=== PATIENT | male | born 1980 | race Caucasian/White ===

== ENCOUNTER 2018-02-14 09:23 | Inpatient (IN) | payer OTHER ==
[2018-02-14] MEDS ORDERED: ACETAMINOPHEN 325 MG TAB PO (10:00)
[2018-02-14] MEDS ORDERED: NACL 0.9% 3 ML SYG IV (10:00)
[2018-02-14] MEDS: LORAZEPAM 2 MG INJ IV ×5 (10:13→21:49)
[2018-02-14] MEDS: SOD CHLORIDE 0.9% 1,000 ML IV ×2 (10:14→21:16)
[2018-02-14 11:30] LABS: HEMOGLOBIN A1C 4.9 % (0-5.9)
[2018-02-14 11:36] LABS: LIPASE 14 U/L (23-300)
[2018-02-14 11:37] LABS: ETHANOL < 10.0 mg/dl
[2018-02-14 11:54] LABS: INR 1.06; PROTIME 13.9 Sec (11.9-14.9); PT RATIO 1.1
[2018-02-14] MEDS: MULTIVITAMINS 10 ML, THIAMINE 100 MG, FOLIC ACID 1 MG in SOD CHLORIDE 0.9% 1,000 ML IVPB (12:24)
[2018-02-14] MEDS: CHLORDIAZEPOXIDE 25 MG CAP PO ×2 (12:25→21:15)
[2018-02-14] MEDS: FLUOXETINE 20 MG CAP PO (12:28)
[2018-02-14 14:43] LABS: ADD UMIC NO; UR ASCORBIC ACID NEGATIVE (NEGATIVE); UR BILIRUBIN (Dip) NEGATIVE (NEGATIVE); UR BLOOD (Dip) NEGATIVE (NEGATIVE); UR CLARITY CLEAR (CLEAR); UR COLOR STRAW (YELLOW); UR GLUCOSE (Dip) 1+ mg/dL (NEGATIVE); UR KETONES (Dip) NEGATIVE (NEGATIVE); UR LEUKOCYTE ESTERASE (Dip) NEGATIVE Leu/ul (NEGATIVE); UR NITRITE (Dip) NEGATIVE (NEGATIVE); UR SPECIFIC GRAVITY (Dip) 1.005 (1.003-1.030); UR TOTAL PROTEIN (Dip) NEGATIVE (NEGATIVE); UR UROBILINOGEN (Dip) NEGATIVE (NEGATIVE)
[2018-02-14 15:32] LABS: AMPHETAMINE/METHAMPHETAMINE Negative (NEGATIVE); BARBITURATES Negative (NEGATIVE); BENZODIAZEPINES Positive (NEGATIVE); CANNABINOIDS Negative (NEGATIVE); OPIATES Negative (NEGATIVE)
[2018-02-14 15:59] LABS: COCAINE Negative (NEGATIVE)
[2018-02-14] MEDS ORDERED: ONDANSETRON 4 MG INJ IV (16:30)
[2018-02-14] MEDS: THIAMINE 100 MG TAB PO (19:17)
[2018-02-14 20:15] LABS: WHITE BLOOD COUNT 5.1 10^3/ul (4.8-10.8)
[2018-02-14 20:15] LABS: HEMATOCRIT 31.5 % (42.0-52.0); HEMOGLOBIN 10.4 g/dl (14.0-18.0); MEAN CORPUSCULAR HEMOGLOBIN 32.8 pg (29.0-33.0); MEAN CORPUSCULAR VOLUME 99.4 fl (82.0-101.0); MEAN PLATELET VOLUME 8.7 fl (7.4-10.4); PLATELET COUNT 272 10^3/UL (140-415); RED BLOOD COUNT 3.17 10^6/ul (4.70-6.10); RED CELL DISTRIBUTION WIDTH 13.2 % (11.5-14.5)
[2018-02-14 20:16] LABS: ADD MAN DIFF? YES
[2018-02-14 20:40] LABS: ALANINE AMINOTRANSFERASE 32 IU/L (13-69); ALBUMIN 3.7 g/dl (3.3-4.9); ALBUMIN/GLOBULIN RATIO 1.23; ALKALINE PHOSPHATASE 63 IU/L (42-121); ANION GAP 13 (8-16); ASPARTATE AMINO TRANSFERASE 30 IU/L (15-46); BILIRUBIN,INDIRECT 0.4 mg/dl (0-1.1); BILIRUBIN,TOTAL 0.4 mg/dl (0.2-1.3); BLOOD UREA NITROGEN 5 mg/dl (7-20); CALCIUM 8.8 mg/dl (8.4-10.2); CARBON DIOXIDE 29 mmol/L (21-31); CHLORIDE 101 mmol/L (97-110); GLUCOSE 130 mg/dl (70-220); POTASSIUM 3.5 mmol/L (3.5-5.1); SODIUM 139 mmol/L (135-144); TOTAL PROTEIN 6.7 g/dl (6.1-8.1)
[2018-02-14 20:43] LABS: ANISOCYTOSIS 1+ (0-0); LYMPHOCYTES #M 1.5 10^3/ul (0.8-2.9); LYMPHOCYTES % (M) 30 % (15-51); MONOCYTE #M 0.5 10^3/ul (0.3-0.9); MONOCYTES % (M) 11 % (0-11); PLATELET ESTIMATE NORMAL; POLYCHROMASIA 3+ (0-0); SEGMENTED NEUTROPHILS (M) % 59 % (39-77); SMUDGE%M 1 % (0-0)
[2018-02-14] MEDS: QUETIAPINE 100 MG TAB PO (21:14)
[2018-02-14] MEDS: traZODone 100 MG TAB PO (21:15)
[2018-02-15 08:32] LABS: ALANINE AMINOTRANSFERASE 30 IU/L (13-69); ALBUMIN 3.5 g/dl (3.3-4.9); ALKALINE PHOSPHATASE 60 IU/L (42-121); ANION GAP 14 (8-16); ASPARTATE AMINO TRANSFERASE 24 IU/L (15-46); BILIRUBIN,INDIRECT 0.3 mg/dl (0-1.1); BILIRUBIN,TOTAL 0.3 mg/dl (0.2-1.3); BLOOD UREA NITROGEN 7 mg/dl (7-20); CALCIUM 8.7 mg/dl (8.4-10.2); CARBON DIOXIDE 28 mmol/L (21-31); CHLORIDE 105 mmol/L (97-110); CREATININE 0.84 mg/dl (0.61-1.24); GLUCOSE 104 mg/dl (70-220); MAGNESIUM 2.1 mg/dl (1.7-2.5); POTASSIUM 3.6 mmol/L (3.5-5.1); SODIUM 143 mmol/L (135-144); TOTAL PROTEIN 6.4 g/dl (6.1-8.1)
[2018-02-15] MEDS: MULTIVITAMINS THERAPEUTIC TAB PO (08:57)
[2018-02-15] MEDS: CHLORDIAZEPOXIDE 25 MG CAP PO ×4 (08:58→20:48)
[2018-02-15] MEDS: FLUOXETINE 20 MG CAP PO (08:58)
[2018-02-15] MEDS: MULTIVITAMINS 10 ML, THIAMINE 100 MG, FOLIC ACID 1 MG in SOD CHLORIDE 0.9% 1,000 ML IVPB (08:59)
[2018-02-15] MEDS: LORAZEPAM 2 MG INJ IV ×6 (10:39→23:11)
[2018-02-15] MEDS: THIAMINE 100 MG TAB PO (10:42)
[2018-02-15] MEDS: SOD CHLORIDE 0.9% 1,000 ML IV ×2 (10:57→18:00)
[2018-02-15 12:54] LABS: LIPASE 13 U/L (23-300)
[2018-02-15 13:12] LABS: AMYLASE 38 U/L (11-123)
[2018-02-15] MEDS: traZODone 100 MG TAB PO (20:47)
[2018-02-15] MEDS: QUETIAPINE 100 MG TAB PO (20:48)
[2018-02-16] MEDS: SOD CHLORIDE 0.9% 1,000 ML IV ×2 (05:24→17:25)
[2018-02-16 05:36] LABS: ADD MAN DIFF? NO
[2018-02-16 05:39] LABS: WHITE BLOOD COUNT 5.3 10^3/ul (4.8-10.8)
[2018-02-16 05:40] LABS: BASOPHILS % 0.6 % (0.0-2.0); EOSINOPHILS # 0.2 10^3/ul (0.0-0.5); EOSINOPHILS % 3.6 % (0.0-7.0); HEMATOCRIT 30.5 % (42.0-52.0); HEMOGLOBIN 9.9 g/dl (14.0-18.0); LYMPHOCYTES # 2.2 10^3/ul (0.8-2.9); LYMPHOCYTES % 42.5 % (15.0-51.0); MEAN CORPUSCULAR HEMOGLOBIN 32.7 pg (29.0-33.0); MEAN CORPUSCULAR HGB CONC 32.5 g/dl (32.0-37.0); MEAN CORPUSCULAR VOLUME 100.7 fl (82.0-101.0); MEAN PLATELET VOLUME 9.1 fl (7.4-10.4); MONOCYTE # 0.6 10^3/ul (0.3-0.9); MONOCYTES % 10.5 % (0.0-11.0); NEUTROPHIL # 2.2 10^3/ul (1.6-7.5); NEUTROPHILS % 42.6 % (39.0-77.0); PLATELET COUNT 271 10^3/UL (140-415); RED BLOOD COUNT 3.03 10^6/ul (4.70-6.10); RED CELL DISTRIBUTION WIDTH 13.2 % (11.5-14.5)
[2018-02-16 05:56] LABS: CHOLESTEROL 157 mg/dl (100-200); PHOSPHORUS 4.9 mg/dl (2.5-4.9)
[2018-02-16 05:56] LABS: CHOL/HDL RATIO 2.9 RATIO; HDL CHOLESTEROL 54 mg/dl (28-63); LDL CHOLESTEROL,CALCULATED 80 mg/dl; TRIGLYCERIDES 113 mg/dl (0-149)
[2018-02-16 06:01] LABS: ALANINE AMINOTRANSFERASE 32 IU/L (13-69); ALBUMIN 3.4 g/dl (3.3-4.9); ALBUMIN/GLOBULIN RATIO 1.21; ALKALINE PHOSPHATASE 55 IU/L (42-121); ANION GAP 12 (8-16); ASPARTATE AMINO TRANSFERASE 18 IU/L (15-46); BILIRUBIN,INDIRECT 0.1 mg/dl (0-1.1); BILIRUBIN,TOTAL 0.1 mg/dl (0.2-1.3); BLOOD UREA NITROGEN 11 mg/dl (7-20); CALCIUM 8.7 mg/dl (8.4-10.2); CARBON DIOXIDE 31 mmol/L (21-31); CHLORIDE 104 mmol/L (97-110); CREATININE 0.95 mg/dl (0.61-1.24); GLUCOSE 110 mg/dl (70-220); POTASSIUM 3.9 mmol/L (3.5-5.1); SODIUM 143 mmol/L (135-144); TOTAL PROTEIN 6.2 g/dl (6.1-8.1)
[2018-02-16] MEDS: FLUOXETINE 20 MG CAP PO (09:11)
[2018-02-16] MEDS: CHLORDIAZEPOXIDE 25 MG CAP PO ×3 (09:11→21:07)
[2018-02-16] MEDS: THIAMINE 100 MG TAB PO (09:11)
[2018-02-16] MEDS: MULTIVITAMINS THERAPEUTIC TAB PO (09:11)
[2018-02-16] MEDS: LORAZEPAM 2 MG INJ IV ×6 (09:18→22:13)
[2018-02-16] MEDS: MULTIVITAMINS 10 ML, THIAMINE 100 MG, FOLIC ACID 1 MG in SOD CHLORIDE 0.9% 1,000 ML IVPB (09:18)
[2018-02-16 13:57] LABS: IRON 40 ug/dl (35-150)
[2018-02-16 14:07] LABS: % IRON SATURATION 13 % SAT (22-52); TOTAL IRON BINDING CAPACITY 317 ug/dl (241-421)
[2018-02-16 14:34] LABS: FERRITIN 27.9 ng/ml (17.9-464.0)
[2018-02-16 15:04] LABS: FOLATE 9.2 ng/ml (2.8-20.0)
[2018-02-16] MEDS: QUETIAPINE 100 MG TAB PO (21:07)
[2018-02-16] MEDS: traZODone 100 MG TAB PO (21:07)
[2018-02-17] MEDS: LORAZEPAM 2 MG INJ IV ×9 (00:56→23:14)
[2018-02-17] MEDS: SOD CHLORIDE 0.9% 1,000 ML IV ×2 (05:29→18:57)
[2018-02-17 06:26] LABS: ALANINE AMINOTRANSFERASE 24 IU/L (13-69); ALBUMIN 3.7 g/dl (3.3-4.9); ALBUMIN/GLOBULIN RATIO 1.27; ALKALINE PHOSPHATASE 52 IU/L (42-121); ANION GAP 14 (8-16); ASPARTATE AMINO TRANSFERASE 13 IU/L (15-46); BLOOD UREA NITROGEN 12 mg/dl (7-20); CALCIUM 8.6 mg/dl (8.4-10.2); CARBON DIOXIDE 29 mmol/L (21-31); CHLORIDE 103 mmol/L (97-110); GLUCOSE 107 mg/dl (70-220); POTASSIUM 3.6 mmol/L (3.5-5.1); SODIUM 142 mmol/L (135-144); TOTAL PROTEIN 6.6 g/dl (6.1-8.1)
[2018-02-17] MEDS: FLUOXETINE 20 MG CAP PO (08:51)
[2018-02-17] MEDS: THIAMINE 100 MG TAB PO (08:51)
[2018-02-17] MEDS: MULTIVITAMINS THERAPEUTIC TAB PO (08:51)
[2018-02-17] MEDS: CHLORDIAZEPOXIDE 25 MG CAP PO (08:51)
[2018-02-17] MEDS: MULTIVITAMINS 10 ML, THIAMINE 100 MG, FOLIC ACID 1 MG in SOD CHLORIDE 0.9% 1,000 ML IVPB (08:55)
[2018-02-17 10:34] LABS: ADD MAN DIFF? NO
[2018-02-17 10:38] LABS: BASOPHILS % 0.6 % (0.0-2.0); EOSINOPHILS # 0.2 10^3/ul (0.0-0.5); EOSINOPHILS % 3.3 % (0.0-7.0); HEMATOCRIT 31.6 % (42.0-52.0); HEMOGLOBIN 10.5 g/dl (14.0-18.0); LYMPHOCYTES # 2.4 10^3/ul (0.8-2.9); LYMPHOCYTES % 36.1 % (15.0-51.0); MEAN CORPUSCULAR HEMOGLOBIN 33.4 pg (29.0-33.0); MEAN CORPUSCULAR HGB CONC 33.2 g/dl (32.0-37.0); MEAN CORPUSCULAR VOLUME 100.6 fl (82.0-101.0); MEAN PLATELET VOLUME 9.3 fl (7.4-10.4); MONOCYTE # 0.5 10^3/ul (0.3-0.9); MONOCYTES % 7.5 % (0.0-11.0); NEUTROPHIL # 3.5 10^3/ul (1.6-7.5); NEUTROPHILS % 52.2 % (39.0-77.0); PLATELET COUNT 305 10^3/UL (140-415); RED BLOOD COUNT 3.14 10^6/ul (4.70-6.10); RED CELL DISTRIBUTION WIDTH 13.2 % (11.5-14.5)
[2018-02-17 10:38] LABS: WHITE BLOOD COUNT 6.7 10^3/ul (4.8-10.8)
[2018-02-17] MEDS: QUETIAPINE 100 MG TAB PO (20:55)
[2018-02-17] MEDS: traZODone 100 MG TAB PO (20:55)
[2018-02-18 05:15] LABS: ADD MAN DIFF? NO
[2018-02-18 05:20] LABS: BASOPHILS % 0.6 % (0.0-2.0); EOSINOPHILS # 0.2 10^3/ul (0.0-0.5); EOSINOPHILS % 3.2 % (0.0-7.0); HEMATOCRIT 31.8 % (42.0-52.0); HEMOGLOBIN 10.8 g/dl (14.0-18.0); LYMPHOCYTES # 2.3 10^3/ul (0.8-2.9); LYMPHOCYTES % 33.4 % (15.0-51.0); MEAN CORPUSCULAR HEMOGLOBIN 33.3 pg (29.0-33.0); MEAN CORPUSCULAR VOLUME 98.1 fl (82.0-101.0); MEAN PLATELET VOLUME 8.9 fl (7.4-10.4); MONOCYTE # 0.4 10^3/ul (0.3-0.9); MONOCYTES % 5.5 % (0.0-11.0); NEUTROPHIL # 3.9 10^3/ul (1.6-7.5); PLATELET COUNT 313 10^3/UL (140-415); RED BLOOD COUNT 3.24 10^6/ul (4.70-6.10); RED CELL DISTRIBUTION WIDTH 13.1 % (11.5-14.5)
[2018-02-18 05:20] LABS: WHITE BLOOD COUNT 6.9 10^3/ul (4.8-10.8)
[2018-02-18 05:50] LABS: ALANINE AMINOTRANSFERASE 22 IU/L (13-69); ALBUMIN 3.8 g/dl (3.3-4.9); ALBUMIN/GLOBULIN RATIO 1.18; ALKALINE PHOSPHATASE 57 IU/L (42-121); ANION GAP 14 (8-16); ASPARTATE AMINO TRANSFERASE 16 IU/L (15-46); BILIRUBIN,INDIRECT 0.1 mg/dl (0-1.1); BILIRUBIN,TOTAL 0.1 mg/dl (0.2-1.3); BLOOD UREA NITROGEN 13 mg/dl (7-20); CALCIUM 8.7 mg/dl (8.4-10.2); CARBON DIOXIDE 30 mmol/L (21-31); CHLORIDE 102 mmol/L (97-110); CREATININE 0.91 mg/dl (0.61-1.24); GLUCOSE 103 mg/dl (70-220); MAGNESIUM 2.2 mg/dl (1.7-2.5); POTASSIUM 3.7 mmol/L (3.5-5.1); SODIUM 142 mmol/L (135-144)
[2018-02-18] MEDS: FLUOXETINE 20 MG CAP PO (09:09)
[2018-02-18] MEDS: MULTIVITAMINS 10 ML, THIAMINE 100 MG, FOLIC ACID 1 MG in SOD CHLORIDE 0.9% 1,000 ML IVPB (09:09)
[2018-02-18] MEDS: MULTIVITAMINS THERAPEUTIC TAB PO (09:09)
[2018-02-18] MEDS: LORAZEPAM 2 MG INJ IV ×6 (09:13→23:39)
[2018-02-18] MEDS: SOD CHLORIDE 0.9% 1,000 ML IV ×2 (13:35→18:38)
[2018-02-18] MEDS: QUETIAPINE 100 MG TAB PO (20:23)
[2018-02-18] MEDS: traZODone 100 MG TAB PO (20:23)
[2018-02-19] MEDS: SOD CHLORIDE 0.9% 1,000 ML IV (03:12)
[2018-02-19 06:23] LABS: ALANINE AMINOTRANSFERASE 24 IU/L (13-69); ALBUMIN 3.8 g/dl (3.3-4.9); ALBUMIN/GLOBULIN RATIO 1.31; ALKALINE PHOSPHATASE 52 IU/L (42-121); ANION GAP 15 (8-16); ASPARTATE AMINO TRANSFERASE 19 IU/L (15-46); BILIRUBIN,INDIRECT 0.1 mg/dl (0-1.1); BILIRUBIN,TOTAL 0.1 mg/dl (0.2-1.3); BLOOD UREA NITROGEN 10 mg/dl (7-20); CALCIUM 8.4 mg/dl (8.4-10.2); CARBON DIOXIDE 29 mmol/L (21-31); CHLORIDE 102 mmol/L (97-110); CREATININE 0.87 mg/dl (0.61-1.24); GLUCOSE 92 mg/dl (70-220); MAGNESIUM 2.1 mg/dl (1.7-2.5); POTASSIUM 3.6 mmol/L (3.5-5.1); SODIUM 142 mmol/L (135-144); TOTAL PROTEIN 6.7 g/dl (6.1-8.1)
[2018-02-19] MEDS: MULTIVITAMINS THERAPEUTIC TAB PO (09:47)
[2018-02-19] MEDS: FLUOXETINE 20 MG CAP PO (09:48)
[2018-02-19] MEDS: MULTIVITAMINS 10 ML, THIAMINE 100 MG, FOLIC ACID 1 MG in SOD CHLORIDE 0.9% 1,000 ML IVPB (09:48)
[2018-02-19] MEDS: LORAZEPAM 2 MG INJ IV ×5 (09:51→22:24)
[2018-02-19] MEDS: CHLORDIAZEPOXIDE 5 MG CAP PO ×2 (12:21→21:42)
[2018-02-19] MEDS: traZODone 100 MG TAB PO (21:40)
[2018-02-19] MEDS: QUETIAPINE 100 MG TAB PO (21:41)
[2018-02-20] MEDS: MULTIVITAMINS THERAPEUTIC TAB PO (09:36)
[2018-02-20] MEDS: MULTIVITAMINS 10 ML, THIAMINE 100 MG, FOLIC ACID 1 MG in SOD CHLORIDE 0.9% 1,000 ML IVPB (09:36)
[2018-02-20] MEDS: FLUOXETINE 20 MG CAP PO (09:36)
[2018-02-20] MEDS: CHLORDIAZEPOXIDE 5 MG CAP PO ×3 (09:37→20:30)
[2018-02-20] MEDS: LORAZEPAM 2 MG INJ IV ×6 (10:15→22:08)
[2018-02-20] MEDS: traZODone 100 MG TAB PO (20:30)
[2018-02-20] MEDS: QUETIAPINE 100 MG TAB PO (20:30)
[2018-02-21] MEDS: SOD CHLORIDE 0.9% 500 ML IV (08:05)
[2018-02-21] MEDS: LORAZEPAM 2 MG INJ IV ×6 (08:05→22:24)
[2018-02-21] MEDS: FOLIC ACID 1 MG TAB PO (09:05)
[2018-02-21] MEDS: FLUOXETINE 20 MG CAP PO (09:05)
[2018-02-21] MEDS: MULTIVITAMINS THERAPEUTIC TAB PO (09:05)
[2018-02-21] MEDS: THIAMINE 100 MG TAB PO (09:05)
[2018-02-21] MEDS: CHLORDIAZEPOXIDE 5 MG CAP PO ×3 (09:05→21:40)
[2018-02-21] MEDS: POLYETHYLENE GLYCOL 17 GM PACKET NGT ×2 (12:08→21:41)
[2018-02-21] MEDS: BISACODYL (EC) 5 MG TAB PO (12:08)
[2018-02-21] MEDS: DOCUSATE SODIUM 100 MG CAP PO (21:38)
[2018-02-21] MEDS: QUETIAPINE 100 MG TAB PO (21:39)
[2018-02-21] MEDS: traZODone 100 MG TAB PO (21:39)
[2018-02-22] MEDS: LORAZEPAM 2 MG INJ IV ×2 (00:53→08:13)
[2018-02-22] MEDS: SOD CHLORIDE 0.9% 1,000 ML IV (03:08)
[2018-02-22 06:46] LABS: ADD MAN DIFF? NO
[2018-02-22 06:49] LABS: WHITE BLOOD COUNT 6.5 10^3/ul (4.8-10.8)
[2018-02-22 06:49] LABS: BASOPHILS % 0.6 % (0.0-2.0); EOSINOPHILS # 0.2 10^3/ul (0.0-0.5); EOSINOPHILS % 3.2 % (0.0-7.0); HEMATOCRIT 34.3 % (42.0-52.0); HEMOGLOBIN 11.3 g/dl (14.0-18.0); LYMPHOCYTES # 2.4 10^3/ul (0.8-2.9); LYMPHOCYTES % 37.1 % (15.0-51.0); MEAN CORPUSCULAR HEMOGLOBIN 32.9 pg (29.0-33.0); MEAN CORPUSCULAR HGB CONC 32.9 g/dl (32.0-37.0); MEAN PLATELET VOLUME 9.1 fl (7.4-10.4); MONOCYTE # 0.5 10^3/ul (0.3-0.9); MONOCYTES % 7.9 % (0.0-11.0); NEUTROPHIL # 3.3 10^3/ul (1.6-7.5); NEUTROPHILS % 50.7 % (39.0-77.0); PLATELET COUNT 345 10^3/UL (140-415); RED BLOOD COUNT 3.43 10^6/ul (4.70-6.10)
[2018-02-22 07:41] LABS: ALANINE AMINOTRANSFERASE 22 IU/L (13-69); ALBUMIN/GLOBULIN RATIO 1.33; ALKALINE PHOSPHATASE 49 IU/L (42-121); ANION GAP 15 (8-16); ASPARTATE AMINO TRANSFERASE 14 IU/L (15-46); BLOOD UREA NITROGEN 12 mg/dl (7-20); CALCIUM 8.8 mg/dl (8.4-10.2); CARBON DIOXIDE 29 mmol/L (21-31); CHLORIDE 102 mmol/L (97-110); CREATININE 0.98 mg/dl (0.61-1.24); GLUCOSE 97 mg/dl (70-220); POTASSIUM 3.8 mmol/L (3.5-5.1); SODIUM 142 mmol/L (135-144)
[2018-02-22 07:45] LABS: PHOSPHORUS 5.2 mg/dl (2.5-4.9)
[2018-02-22 07:45] LABS: MAGNESIUM 2.1 mg/dl (1.7-2.5)
[2018-02-22] MEDS: FOLIC ACID 1 MG TAB PO (08:12)
[2018-02-22] MEDS: POLYETHYLENE GLYCOL 17 GM PACKET NGT ×3 (08:12→21:07)
[2018-02-22] MEDS: BISACODYL (EC) 5 MG TAB PO (08:12)
[2018-02-22] MEDS: CHLORDIAZEPOXIDE 5 MG CAP PO (08:13)
[2018-02-22] MEDS: FLUOXETINE 20 MG CAP PO (08:13)
[2018-02-22] MEDS: THIAMINE 100 MG TAB PO (08:13)
[2018-02-22] MEDS: MULTIVITAMINS THERAPEUTIC TAB PO (08:13)
[2018-02-22] MEDS: DOCUSATE SODIUM 100 MG CAP PO (08:13)
[2018-02-22] MEDS ORDERED: BISACODYL 10 MG SUPP PR (09:30)
[2018-02-22] MEDS ORDERED: LORAZEPAM 2 MG INJ IV (11:22)
[2018-02-22] MEDS: ALPRAZOLAM 0.5 MG TAB PO ×2 (12:17→18:22)
[2018-02-22] MEDS: LACTULOSE 30ML CUP PO (12:17)
[2018-02-22] MEDS ORDERED: MAGNESIUM HYDROXIDE 30ML CUP PO (16:00)
[2018-02-22] MEDS: traZODone 100 MG TAB PO (21:07)
[2018-02-22] MEDS: QUETIAPINE 100 MG TAB PO (21:08)
[2018-02-23] MEDS: ALPRAZOLAM 0.5 MG TAB PO ×4 (00:29→21:02)
[2018-02-23 07:10] LABS: ADD MAN DIFF? NO
[2018-02-23 07:12] LABS: WHITE BLOOD COUNT 5.5 10^3/ul (4.8-10.8)
[2018-02-23 07:12] LABS: BASOPHILS % 0.5 % (0.0-2.0); EOSINOPHILS # 0.2 10^3/ul (0.0-0.5); EOSINOPHILS % 3.3 % (0.0-7.0); HEMATOCRIT 35.5 % (42.0-52.0); HEMOGLOBIN 11.3 g/dl (14.0-18.0); LYMPHOCYTES # 2.2 10^3/ul (0.8-2.9); LYMPHOCYTES % 39.2 % (15.0-51.0); MEAN CORPUSCULAR HEMOGLOBIN 31.9 pg (29.0-33.0); MEAN CORPUSCULAR HGB CONC 31.8 g/dl (32.0-37.0); MEAN CORPUSCULAR VOLUME 100.3 fl (82.0-101.0); MEAN PLATELET VOLUME 9.2 fl (7.4-10.4); MONOCYTE # 0.4 10^3/ul (0.3-0.9); MONOCYTES % 7.8 % (0.0-11.0); NEUTROPHIL # 2.7 10^3/ul (1.6-7.5); NEUTROPHILS % 48.8 % (39.0-77.0); PLATELET COUNT 328 10^3/UL (140-415); RED BLOOD COUNT 3.54 10^6/ul (4.70-6.10)
[2018-02-23 07:39] LABS: ANION GAP 15 (8-16); BLOOD UREA NITROGEN 16 mg/dl (7-20); CALCIUM 9.1 mg/dl (8.4-10.2); CARBON DIOXIDE 29 mmol/L (21-31); CHLORIDE 100 mmol/L (97-110); CREATININE 1.15 mg/dl (0.61-1.24); GLUCOSE 103 mg/dl (70-220); SODIUM 140 mmol/L (135-144)
[2018-02-23] MEDS: THIAMINE 100 MG TAB PO (09:03)
[2018-02-23] MEDS: MULTIVITAMINS THERAPEUTIC TAB PO (09:03)
[2018-02-23] MEDS: FOLIC ACID 1 MG TAB PO (09:03)
[2018-02-23] MEDS: POLYETHYLENE GLYCOL 17 GM PACKET NGT ×2 (09:03→22:09)
[2018-02-23] MEDS: FLUOXETINE 20 MG CAP PO (09:03)
[2018-02-23] MEDS: QUETIAPINE 100 MG TAB PO (22:09)
[2018-02-23] MEDS: traZODone 100 MG TAB PO (22:09)
[2018-02-24] MEDS: ALPRAZOLAM 0.5 MG TAB PO ×3 (03:05→15:17)
[2018-02-24 06:47] LABS: ADD MAN DIFF? NO
[2018-02-24 06:54] LABS: BASOPHILS % 0.8 % (0.0-2.0); EOSINOPHILS # 0.2 10^3/ul (0.0-0.5); EOSINOPHILS % 3.2 % (0.0-7.0); HEMATOCRIT 35.6 % (42.0-52.0); HEMOGLOBIN 11.6 g/dl (14.0-18.0); LYMPHOCYTES # 2.2 10^3/ul (0.8-2.9); MEAN CORPUSCULAR HEMOGLOBIN 32.5 pg (29.0-33.0); MEAN CORPUSCULAR HGB CONC 32.6 g/dl (32.0-37.0); MEAN CORPUSCULAR VOLUME 99.7 fl (82.0-101.0); MEAN PLATELET VOLUME 9.3 fl (7.4-10.4); MONOCYTE # 0.4 10^3/ul (0.3-0.9); MONOCYTES % 7.9 % (0.0-11.0); NEUTROPHIL # 2.4 10^3/ul (1.6-7.5); NEUTROPHILS % 45.9 % (39.0-77.0); PLATELET COUNT 345 10^3/UL (140-415); RED BLOOD COUNT 3.57 10^6/ul (4.70-6.10); RED CELL DISTRIBUTION WIDTH 12.8 % (11.5-14.5)
[2018-02-24 06:54] LABS: WHITE BLOOD COUNT 5.3 10^3/ul (4.8-10.8)
[2018-02-24 07:15] LABS: ANION GAP 13 (8-16); BLOOD UREA NITROGEN 15 mg/dl (7-20); CALCIUM 9.2 mg/dl (8.4-10.2); CARBON DIOXIDE 33 mmol/L (21-31); CHLORIDE 99 mmol/L (97-110); CREATININE 1.13 mg/dl (0.61-1.24); GLUCOSE 119 mg/dl (70-220); POTASSIUM 4.1 mmol/L (3.5-5.1); SODIUM 141 mmol/L (135-144)
[2018-02-24] MEDS: POLYETHYLENE GLYCOL 17 GM PACKET NGT (08:27)
[2018-02-24] MEDS: FLUOXETINE 20 MG CAP PO (08:28)
[2018-02-24] MEDS: MULTIVITAMINS THERAPEUTIC TAB PO (08:28)
[2018-02-24] MEDS: THIAMINE 100 MG TAB PO (08:28)
[2018-02-24] MEDS: FOLIC ACID 1 MG TAB PO (08:28)
[2018-02-24] MEDS: LACTULOSE 30ML CUP PO (15:46)
[2018-02-24] MEDS: SOD CHLORIDE 0.9% 500 ML IV (16:00)
== END 2018-02-24 18:45 | DRG 897 ==
LOC: PP2 02-15 17:38 → MS4 09:23
PROVIDERS: Internal Medicine
DX: F10.239 Alcohol dependence with withdrawal, unspecified (principal); R45.851 Suicidal ideations; F41.9 Anxiety disorder, unspecified; F32.9 Major depressive disorder, single episode, unspecified; F17.210 Nicotine dependence, cigarettes, uncomplicated; F12.90 Cannabis use, unspecified, uncomplicated; D64.9 Anemia, unspecified; K59.00 Constipation, unspecified; F91.9 Conduct disorder, unspecified
CPT/HCPCS: 74018; 80048; 80053; 80061; 80306; 80307; 81003; 82150; 82533; 82607; 82728; 82746; 83036; 83540; 83690; 83735; 84100; 84443; 85025; 85610; 97116; 97164

== ENCOUNTER 2018-03-11 02:55 | Inpatient (IN) | payer OTHER ==
[2018-03-11] MEDS: SOD CHLORIDE 0.9% 1,000 ML IV ×3 (04:00→20:31)
[2018-03-11] MEDS: LORAZEPAM 2 MG INJ IV ×7 (04:00→20:30)
[2018-03-11 07:35] LABS: ADD MAN DIFF? NO
[2018-03-11 07:39] LABS: BASOPHILS % 0.3 % (0.0-2.0); EOSINOPHILS # 0.1 10^3/ul (0.0-0.5); EOSINOPHILS % 0.8 % (0.0-7.0); HEMATOCRIT 31.2 % (42.0-52.0); HEMOGLOBIN 10.4 g/dl (14.0-18.0); LYMPHOCYTES % 20.4 % (15.0-51.0); MEAN CORPUSCULAR HEMOGLOBIN 32.4 pg (29.0-33.0); MEAN CORPUSCULAR HGB CONC 33.3 g/dl (32.0-37.0); MEAN CORPUSCULAR VOLUME 97.2 fl (82.0-101.0); MEAN PLATELET VOLUME 8.8 fl (7.4-10.4); MONOCYTE # 0.6 10^3/ul (0.3-0.9); MONOCYTES % 6.6 % (0.0-11.0); NEUTROPHILS % 71.7 % (39.0-77.0); PLATELET COUNT 262 10^3/UL (140-415); RED BLOOD COUNT 3.21 10^6/ul (4.70-6.10); RED CELL DISTRIBUTION WIDTH 13.1 % (11.5-14.5)
[2018-03-11 07:39] LABS: WHITE BLOOD COUNT 9.7 10^3/ul (4.8-10.8)
[2018-03-11] MEDS: CHLORDIAZEPOXIDE 25 MG CAP PO ×3 (08:34→21:48)
[2018-03-11 08:46] LABS: ALANINE AMINOTRANSFERASE 23 IU/L (13-69); ALBUMIN 3.8 g/dl (3.3-4.9); ALBUMIN/GLOBULIN RATIO 1.31; ALKALINE PHOSPHATASE 60 IU/L (42-121); ANION GAP 14 (8-16); ASPARTATE AMINO TRANSFERASE 29 IU/L (15-46); BILIRUBIN,INDIRECT 0.3 mg/dl (0-1.1); BILIRUBIN,TOTAL 0.3 mg/dl (0.2-1.3); BLOOD UREA NITROGEN 6 mg/dl (7-20); CALCIUM 8.6 mg/dl (8.4-10.2); CARBON DIOXIDE 25 mmol/L (21-31); CHLORIDE 108 mmol/L (97-110); CREATININE 0.63 mg/dl (0.61-1.24); GLUCOSE 79 mg/dl (70-220); MAGNESIUM 1.7 mg/dl (1.7-2.5); PHOSPHORUS 2.3 mg/dl (2.5-4.9); POTASSIUM 3.6 mmol/L (3.5-5.1); SODIUM 143 mmol/L (135-144); TOTAL PROTEIN 6.7 g/dl (6.1-8.1)
[2018-03-11] MEDS ORDERED: ONDANSETRON 4 MG INJ IV (09:30)
[2018-03-11] MEDS ORDERED: LORAZEPAM 2 MG INJ IV (09:30)
[2018-03-11 09:38] LABS: LIPASE 18 U/L (23-300)
[2018-03-11] MEDS: MULTIVITAMINS 10 ML, THIAMINE 100 MG, FOLIC ACID 1 MG in SOD CHLORIDE 0.9% 1,000 ML IVPB (12:19)
[2018-03-11] MEDS: NEUTRA-PHOS 250 MG PACKET PO (12:27)
[2018-03-11] MEDS: FLUOXETINE 20 MG CAP PO (12:28)
[2018-03-11] MEDS: QUETIAPINE 100 MG TAB PO (21:47)
[2018-03-12] MEDS: SOD CHLORIDE 0.9% 1,000 ML IV (04:00)
[2018-03-12 06:51] LABS: ADD MAN DIFF? NO
[2018-03-12 06:57] LABS: BASOPHILS % 0.3 % (0.0-2.0); EOSINOPHILS # 0.1 10^3/ul (0.0-0.5); EOSINOPHILS % 2.3 % (0.0-7.0); HEMATOCRIT 32.9 % (42.0-52.0); LYMPHOCYTES # 1.8 10^3/ul (0.8-2.9); LYMPHOCYTES % 31.2 % (15.0-51.0); MEAN CORPUSCULAR HEMOGLOBIN 32.4 pg (29.0-33.0); MEAN CORPUSCULAR HGB CONC 33.4 g/dl (32.0-37.0); MEAN CORPUSCULAR VOLUME 97.1 fl (82.0-101.0); MONOCYTE # 0.6 10^3/ul (0.3-0.9); MONOCYTES % 10.5 % (0.0-11.0); NEUTROPHIL # 3.2 10^3/ul (1.6-7.5); NEUTROPHILS % 55.4 % (39.0-77.0); PLATELET COUNT 251 10^3/UL (140-415); RED BLOOD COUNT 3.39 10^6/ul (4.70-6.10); RED CELL DISTRIBUTION WIDTH 12.7 % (11.5-14.5)
[2018-03-12 06:57] LABS: WHITE BLOOD COUNT 5.7 10^3/ul (4.8-10.8)
[2018-03-12 07:39] LABS: ANION GAP 12 (8-16); BLOOD UREA NITROGEN 9 mg/dl (7-20); CALCIUM 8.7 mg/dl (8.4-10.2); CARBON DIOXIDE 26 mmol/L (21-31); CHLORIDE 107 mmol/L (97-110); CREATININE 0.69 mg/dl (0.61-1.24); GLUCOSE 93 mg/dl (70-220); MAGNESIUM 1.9 mg/dl (1.7-2.5); PHOSPHORUS 3.8 mg/dl (2.5-4.9); POTASSIUM 3.3 mmol/L (3.5-5.1); SODIUM 142 mmol/L (135-144)
[2018-03-12] MEDS: CHLORDIAZEPOXIDE 25 MG CAP PO ×3 (08:15→21:00)
[2018-03-12] MEDS: LORAZEPAM 2 MG INJ IV ×4 (08:16→23:24)
[2018-03-12] MEDS: FLUOXETINE 20 MG CAP PO (08:16)
[2018-03-12] MEDS: MULTIVITAMINS 10 ML, THIAMINE 100 MG, FOLIC ACID 1 MG in SOD CHLORIDE 0.9% 1,000 ML IVPB (08:23)
[2018-03-12] MEDS: POTASSIUM CHLORIDE 20 MEQ POWDER FOR ORAL SOLN PO (12:28)
[2018-03-12] MEDS: QUETIAPINE 100 MG TAB PO (20:59)
[2018-03-13 06:54] LABS: ADD MAN DIFF? NO
[2018-03-13 07:02] LABS: WHITE BLOOD COUNT 5.2 10^3/ul (4.8-10.8)
[2018-03-13 07:02] LABS: BASOPHILS % 0.4 % (0.0-2.0); EOSINOPHILS # 0.2 10^3/ul (0.0-0.5); EOSINOPHILS % 4.4 % (0.0-7.0); HEMATOCRIT 35.5 % (42.0-52.0); HEMOGLOBIN 11.7 g/dl (14.0-18.0); LYMPHOCYTES # 1.9 10^3/ul (0.8-2.9); LYMPHOCYTES % 36.9 % (15.0-51.0); MEAN CORPUSCULAR HEMOGLOBIN 32.1 pg (29.0-33.0); MEAN CORPUSCULAR VOLUME 97.5 fl (82.0-101.0); MEAN PLATELET VOLUME 8.9 fl (7.4-10.4); MONOCYTE # 0.5 10^3/ul (0.3-0.9); MONOCYTES % 10.3 % (0.0-11.0); NEUTROPHIL # 2.5 10^3/ul (1.6-7.5); NEUTROPHILS % 47.8 % (39.0-77.0); PLATELET COUNT 260 10^3/UL (140-415); RED BLOOD COUNT 3.64 10^6/ul (4.70-6.10); RED CELL DISTRIBUTION WIDTH 12.8 % (11.5-14.5)
[2018-03-13 07:42] LABS: ANION GAP 13 (8-16); BLOOD UREA NITROGEN 10 mg/dl (7-20); CALCIUM 8.9 mg/dl (8.4-10.2); CARBON DIOXIDE 28 mmol/L (21-31); CHLORIDE 107 mmol/L (97-110); CREATININE 0.81 mg/dl (0.61-1.24); GLUCOSE 94 mg/dl (70-220); PHOSPHORUS 5.3 mg/dl (2.5-4.9); POTASSIUM 3.4 mmol/L (3.5-5.1); SODIUM 145 mmol/L (135-144)
[2018-03-13] MEDS: CHLORDIAZEPOXIDE 25 MG CAP PO ×3 (08:45→20:06)
[2018-03-13] MEDS: FOLIC ACID 0.4 MG TAB PO (08:45)
[2018-03-13] MEDS: FLUOXETINE 20 MG CAP PO (08:45)
[2018-03-13] MEDS: THIAMINE 100 MG TAB PO (08:45)
[2018-03-13] MEDS: LORAZEPAM 2 MG INJ IV ×5 (08:51→21:38)
[2018-03-13] MEDS: POTASSIUM CHLORIDE 20 MEQ POWDER FOR ORAL SOLN PO (11:24)
[2018-03-13] MEDS: QUETIAPINE 100 MG TAB PO ×2 (20:06→21:38)
[2018-03-13] MEDS: traZODone 100 MG TAB PO (21:38)
[2018-03-14] MEDS: SOD CHLORIDE 0.9% 1,000 ML IV ×2 (03:00→22:09)
[2018-03-14 06:58] LABS: ADD MAN DIFF? NO
[2018-03-14 07:33] LABS: BASOPHILS % 0.4 % (0.0-2.0); EOSINOPHILS # 0.2 10^3/ul (0.0-0.5); HEMATOCRIT 33.8 % (42.0-52.0); HEMOGLOBIN 11.1 g/dl (14.0-18.0); LYMPHOCYTES # 2.1 10^3/ul (0.8-2.9); LYMPHOCYTES % 37.5 % (15.0-51.0); MEAN CORPUSCULAR HGB CONC 32.8 g/dl (32.0-37.0); MEAN CORPUSCULAR VOLUME 97.4 fl (82.0-101.0); MONOCYTE # 0.5 10^3/ul (0.3-0.9); NEUTROPHIL # 2.7 10^3/ul (1.6-7.5); NEUTROPHILS % 48.9 % (39.0-77.0); PLATELET COUNT 242 10^3/UL (140-415); RED BLOOD COUNT 3.47 10^6/ul (4.70-6.10)
[2018-03-14 07:33] LABS: WHITE BLOOD COUNT 5.5 10^3/ul (4.8-10.8)
[2018-03-14 08:15] LABS: ANION GAP 12 (8-16); BLOOD UREA NITROGEN 14 mg/dl (7-20); CALCIUM 8.7 mg/dl (8.4-10.2); CARBON DIOXIDE 28 mmol/L (21-31); CHLORIDE 107 mmol/L (97-110); CREATININE 0.78 mg/dl (0.61-1.24); GLUCOSE 108 mg/dl (70-220); MAGNESIUM 1.9 mg/dl (1.7-2.5); PHOSPHORUS 5.3 mg/dl (2.5-4.9); POTASSIUM 3.6 mmol/L (3.5-5.1); SODIUM 143 mmol/L (135-144)
[2018-03-14] MEDS: FOLIC ACID 0.4 MG TAB PO (08:28)
[2018-03-14] MEDS: FLUOXETINE 20 MG CAP PO (08:28)
[2018-03-14] MEDS: THIAMINE 100 MG TAB PO (08:28)
[2018-03-14] MEDS: CHLORDIAZEPOXIDE 25 MG CAP PO (08:28)
[2018-03-14] MEDS: POTASSIUM CHLORIDE 20 MEQ POWDER FOR ORAL SOLN PO (11:16)
[2018-03-14] MEDS: LORAZEPAM 2 MG INJ IV ×2 (12:57→18:40)
[2018-03-14] MEDS ORDERED: GABAPENTIN 300 MG CAP PO (13:00)
[2018-03-14] MEDS ORDERED: CHLORDIAZEPOXIDE 25 MG CAP PO (13:00)
[2018-03-14] MEDS: GABAPENTIN 300 MG CAP PO (13:04)
[2018-03-14] MEDS: CHLORDIAZEPOXIDE 5 MG CAP PO ×2 (13:04→20:17)
[2018-03-14] MEDS: QUETIAPINE 100 MG TAB PO (20:16)
[2018-03-14] MEDS: traZODone 100 MG TAB PO (20:16)
[2018-03-15] MEDS: SOD CHLORIDE 0.9% 1,000 ML IV ×4 (00:15→22:19)
[2018-03-15 06:57] LABS: ADD MAN DIFF? NO
[2018-03-15 07:05] LABS: WHITE BLOOD COUNT 5.6 10^3/ul (4.8-10.8)
[2018-03-15 07:05] LABS: BASOPHILS % 0.4 % (0.0-2.0); EOSINOPHILS # 0.3 10^3/ul (0.0-0.5); EOSINOPHILS % 4.5 % (0.0-7.0); HEMOGLOBIN 10.4 g/dl (14.0-18.0); LYMPHOCYTES # 2.2 10^3/ul (0.8-2.9); LYMPHOCYTES % 39.6 % (15.0-51.0); MEAN CORPUSCULAR HEMOGLOBIN 32.3 pg (29.0-33.0); MEAN CORPUSCULAR HGB CONC 32.5 g/dl (32.0-37.0); MEAN CORPUSCULAR VOLUME 99.4 fl (82.0-101.0); MEAN PLATELET VOLUME 8.9 fl (7.4-10.4); MONOCYTE # 0.4 10^3/ul (0.3-0.9); MONOCYTES % 6.5 % (0.0-11.0); NEUTROPHIL # 2.7 10^3/ul (1.6-7.5); NEUTROPHILS % 48.8 % (39.0-77.0); PLATELET COUNT 221 10^3/UL (140-415); RED BLOOD COUNT 3.22 10^6/ul (4.70-6.10); RED CELL DISTRIBUTION WIDTH 12.8 % (11.5-14.5)
[2018-03-15 08:04] LABS: ANION GAP 11 (8-16); BLOOD UREA NITROGEN 11 mg/dl (7-20); CALCIUM 8.3 mg/dl (8.4-10.2); CARBON DIOXIDE 27 mmol/L (21-31); CHLORIDE 109 mmol/L (97-110); CREATININE 0.75 mg/dl (0.61-1.24); GLUCOSE 103 mg/dl (70-220); MAGNESIUM 1.9 mg/dl (1.7-2.5); PHOSPHORUS 4.3 mg/dl (2.5-4.9); POTASSIUM 4.1 mmol/L (3.5-5.1); SODIUM 143 mmol/L (135-144)
[2018-03-15 08:09] LABS: FREE T4 (FREE THYROXINE) 0.77 ng/dl (0.79-2.35)
[2018-03-15] MEDS: GABAPENTIN 300 MG CAP PO (08:52)
[2018-03-15] MEDS: FOLIC ACID 0.4 MG TAB PO (08:52)
[2018-03-15] MEDS: FLUOXETINE 20 MG CAP PO (08:52)
[2018-03-15] MEDS: THIAMINE 100 MG TAB PO (08:52)
[2018-03-15] MEDS: CHLORDIAZEPOXIDE 5 MG CAP PO ×3 (08:53→20:24)
[2018-03-15] MEDS: LORAZEPAM 2 MG INJ IV ×2 (15:33→21:06)
[2018-03-15] MEDS: traZODone 100 MG TAB PO (20:24)
[2018-03-15] MEDS: QUETIAPINE 100 MG TAB PO (20:24)
[2018-03-16] MEDS: SOD CHLORIDE 0.9% 1,000 ML IV ×3 (05:04→20:55)
[2018-03-16] MEDS: CHLORDIAZEPOXIDE 5 MG CAP PO ×3 (09:00→20:54)
[2018-03-16] MEDS: GABAPENTIN 300 MG CAP PO (12:06)
[2018-03-16] MEDS: FLUOXETINE 20 MG CAP PO (12:06)
[2018-03-16] MEDS: FOLIC ACID 0.4 MG TAB PO (12:06)
[2018-03-16] MEDS: THIAMINE 100 MG TAB PO (12:06)
[2018-03-16] MEDS: QUETIAPINE 100 MG TAB PO (20:54)
[2018-03-16] MEDS: traZODone 100 MG TAB PO (20:54)
[2018-03-16] MEDS: LORAZEPAM 2 MG INJ IV (22:11)
[2018-03-17] MEDS: SOD CHLORIDE 0.9% 1,000 ML IV ×3 (05:12→21:01)
[2018-03-17] MEDS: GABAPENTIN 300 MG CAP PO (08:20)
[2018-03-17] MEDS: THIAMINE 100 MG TAB PO (08:20)
[2018-03-17] MEDS: FLUOXETINE 20 MG CAP PO (08:21)
[2018-03-17] MEDS: CHLORDIAZEPOXIDE 5 MG CAP PO ×2 (08:23→20:38)
[2018-03-17] MEDS: FOLIC ACID 0.4 MG TAB PO (08:23)
[2018-03-17] MEDS: traZODone 100 MG TAB PO (20:39)
[2018-03-17] MEDS: QUETIAPINE 100 MG TAB PO (20:40)
[2018-03-17] MEDS: LORAZEPAM 2 MG INJ IV (21:12)
[2018-03-18] MEDS: SOD CHLORIDE 0.9% 1,000 ML IV ×4 (04:39→22:20)
[2018-03-18] MEDS: SOD CHLORIDE 0.9% 500 ML IV (08:23)
[2018-03-18] MEDS: FLUOXETINE 20 MG CAP PO (08:32)
[2018-03-18] MEDS: THIAMINE 100 MG TAB PO (08:32)
[2018-03-18] MEDS: GABAPENTIN 300 MG CAP PO (08:32)
[2018-03-18] MEDS: FOLIC ACID 0.4 MG TAB PO (08:32)
[2018-03-18] MEDS: CHLORDIAZEPOXIDE 5 MG CAP PO (11:22)
[2018-03-18] MEDS: QUETIAPINE 100 MG TAB PO (20:27)
[2018-03-18] MEDS ORDERED: traZODone 100 MG TAB PO ×2 (21:00)
[2018-03-18] MEDS: ACETAMINOPHEN 325 MG TAB PO (21:00)
[2018-03-19] MEDS: SOD CHLORIDE 0.9% 1,000 ML IV (06:27)
[2018-03-19] MEDS: FOLIC ACID 0.4 MG TAB PO (09:42)
[2018-03-19] MEDS: THIAMINE 100 MG TAB PO (09:42)
[2018-03-19] MEDS: FLUOXETINE 20 MG CAP PO (09:43)
[2018-03-19] MEDS: CHLORDIAZEPOXIDE 5 MG CAP PO (09:43)
== END 2018-03-19 12:25 | disposition home or self-care (01) | DRG 896 ==
LOC: TEL 03-12 05:00 → MS2 03-18 20:40 → TEL 02:55
DX: F10.239 Alcohol dependence with withdrawal, unspecified (principal); K85.90 Acute pancreatitis without necrosis or infection, unspecified; R45.851 Suicidal ideations; F39 Unspecified mood [affective] disorder; F17.210 Nicotine dependence, cigarettes, uncomplicated; F41.9 Anxiety disorder, unspecified; F32.9 Major depressive disorder, single episode, unspecified
CPT/HCPCS: 80048; 80053; 83690; 83735; 84100; 84439; 84443; 85025; 93005

== ENCOUNTER 2018-11-01 17:31 | Inpatient (IN) | payer OTHER ==
[2018-11-01] MEDS ORDERED: NACL 0.9% 3 ML SYG IV (18:00)
[2018-11-01] MEDS ORDERED: HYDROCODONE/APAP (5/325) TAB PO (18:00)
[2018-11-01] MEDS ORDERED: ACETAMINOPHEN 650 MG SUPP PR (18:00)
[2018-11-01] MEDS ORDERED: ACETAMINOPHEN 325 MG TAB PO (18:00)
[2018-11-01 19:37] LABS: ADD MAN DIFF? NO
[2018-11-01 19:40] LABS: BASOPHILS % 0.1 % (0.0-2.0); EOSINOPHILS # 0.1 10^3/ul (0.0-0.5); HEMATOCRIT 33.2 % (42.0-52.0); LYMPHOCYTES # 1.1 10^3/ul (0.8-2.9); LYMPHOCYTES % 11.6 % (15.0-51.0); MEAN CORPUSCULAR HEMOGLOBIN 31.6 pg (29.0-33.0); MEAN CORPUSCULAR HGB CONC 33.1 g/dl (32.0-37.0); MEAN CORPUSCULAR VOLUME 95.4 fl (82.0-101.0); MEAN PLATELET VOLUME 8.9 fl (7.4-10.4); MONOCYTE # 0.5 10^3/ul (0.3-0.9); MONOCYTES % 5.1 % (0.0-11.0); NEUTROPHIL # 7.4 10^3/ul (1.6-7.5); NEUTROPHILS % 81.9 % (39.0-77.0); PLATELET COUNT 188 10^3/UL (140-415); RED BLOOD COUNT 3.48 10^6/ul (4.70-6.10); RED CELL DISTRIBUTION WIDTH 13.2 % (11.5-14.5)
[2018-11-01 19:40] LABS: WHITE BLOOD COUNT 9.1 10^3/ul (4.8-10.8)
[2018-11-01] MEDS: LORAZEPAM 2 MG INJ IV (19:54)
[2018-11-01] MEDS: SOD CHLORIDE 0.9% 1,000 ML IV (19:54)
[2018-11-01] MEDS: PANTOPRAZOLE 40 MG INJ IV (19:54)
[2018-11-01 20:03] LABS: ALANINE AMINOTRANSFERASE 114 IU/L (13-69); ALBUMIN 3.8 g/dl (3.3-4.9); ALBUMIN/GLOBULIN RATIO 1.35; ALKALINE PHOSPHATASE 77 IU/L (42-121); ANION GAP 15 (5-13); ASPARTATE AMINO TRANSFERASE 189 IU/L (15-46); BILIRUBIN,INDIRECT 0.8 mg/dl (0-1.1); BILIRUBIN,TOTAL 0.8 mg/dl (0.2-1.3); BLOOD UREA NITROGEN 15 mg/dl (7-20); CALCIUM 8.5 mg/dl (8.4-10.2); CARBON DIOXIDE 25 mmol/L (21-31); CHLORIDE 95 mmol/L (97-110); CREATININE 0.62 mg/dl (0.61-1.24); Estimated GFR > 60 mL/min (>60); GLUCOSE 69 mg/dl (70-220); POTASSIUM 3.3 mmol/L (3.5-5.1); SODIUM 135 mmol/L (135-144); TOTAL PROTEIN 6.6 g/dl (6.1-8.1)
[2018-11-01 20:06] LABS: LIPASE 968 U/L (23-300)
[2018-11-01 20:15] LABS: TROPONIN-I 0.023 ng/ml (0.000-0.120)
[2018-11-01] MEDS: morphine SULFATE/PF (2 MG/2 ML) SYG IV (21:29)
[2018-11-01] MEDS: POTASSIUM CHLORIDE 100 ML IVPB (22:28)
[2018-11-01] MEDS: KETOROLAC 30 MG INJ IV (23:07)
[2018-11-02] MEDS: POTASSIUM CHLORIDE 100 ML IVPB (00:31)
[2018-11-02] MEDS: SOD CHLORIDE 0.9% 1,000 ML IV ×4 (00:39→20:39)
[2018-11-02] MEDS: LORAZEPAM 2 MG INJ IV ×5 (01:21→22:12)
[2018-11-02] MEDS: morphine SULFATE/PF (2 MG/2 ML) SYG IV ×5 (01:30→23:57)
[2018-11-02] MEDS: PANTOPRAZOLE 40 MG INJ IV ×2 (05:27→17:18)
[2018-11-02] MEDS: KETOROLAC 30 MG INJ IV ×3 (05:27→22:11)
[2018-11-02 05:42] LABS: ADD MAN DIFF? NO
[2018-11-02 05:56] LABS: BASOPHILS % 0.1 % (0.0-2.0); EOSINOPHILS # 0.3 10^3/ul (0.0-0.5); HEMATOCRIT 31.5 % (42.0-52.0); HEMOGLOBIN 10.4 g/dl (14.0-18.0); LYMPHOCYTES # 1.2 10^3/ul (0.8-2.9); LYMPHOCYTES % 17.4 % (15.0-51.0); MEAN CORPUSCULAR HEMOGLOBIN 32.4 pg (29.0-33.0); MEAN CORPUSCULAR VOLUME 98.1 fl (82.0-101.0); MEAN PLATELET VOLUME 8.8 fl (7.4-10.4); MONOCYTE # 0.4 10^3/ul (0.3-0.9); MONOCYTES % 5.8 % (0.0-11.0); NEUTROPHIL # 4.9 10^3/ul (1.6-7.5); NEUTROPHILS % 72.6 % (39.0-77.0); PLATELET COUNT 149 10^3/UL (140-415); RED BLOOD COUNT 3.21 10^6/ul (4.70-6.10); RED CELL DISTRIBUTION WIDTH 13.1 % (11.5-14.5)
[2018-11-02 05:56] LABS: WHITE BLOOD COUNT 6.7 10^3/ul (4.8-10.8)
[2018-11-02] MEDS ORDERED: PANTOPRAZOLE 40 MG INJ IV (06:00)
[2018-11-02 06:23] LABS: ALANINE AMINOTRANSFERASE 108 IU/L (13-69); ALBUMIN 3.4 g/dl (3.3-4.9); ALBUMIN/GLOBULIN RATIO 1.17; ALKALINE PHOSPHATASE 76 IU/L (42-121); ANION GAP 17 (5-13); ASPARTATE AMINO TRANSFERASE 181 IU/L (15-46); BILIRUBIN,INDIRECT 1.2 mg/dl (0-1.1); BILIRUBIN,TOTAL 1.2 mg/dl (0.2-1.3); BLOOD UREA NITROGEN 13 mg/dl (7-20); CALCIUM 8.1 mg/dl (8.4-10.2); CARBON DIOXIDE 23 mmol/L (21-31); CHLORIDE 99 mmol/L (97-110); CHOL/HDL RATIO 1.8 RATIO; CHOLESTEROL 138 mg/dl (100-200); Estimated GFR > 60 mL/min (>60); GLUCOSE 60 mg/dl (70-220); HDL CHOLESTEROL 73 mg/dl (28-63); LDL CHOLESTEROL,CALCULATED 48 mg/dl; MAGNESIUM 2.1 mg/dl (1.7-2.5); SODIUM 139 mmol/L (135-144); TOTAL PROTEIN 6.3 g/dl (6.1-8.1); TRIGLYCERIDES 84 mg/dl (0-149)
[2018-11-02] MEDS: MULTIVITAMINS 10 ML, FOLIC ACID 1 MG in SOD CHLORIDE 0.9% 1,000 ML IVPB (08:51)
[2018-11-02] MEDS: THIAMINE IV FOR USE IN BANANA BAG IS CURRENTLY NOT AVAILABLE FROM MANUFACTURER. XX (09:00)
[2018-11-02] MEDS: PIPER-TAZO 3.375 GM IV (PMX) 100 ML IVPB ×3 (11:49→23:58)
[2018-11-02] MEDS: DEXTROSE 5%-0.9% NACL 1,000 ML IV (22:15)
[2018-11-03] MEDS: LORAZEPAM 2 MG INJ IV ×5 (00:26→20:25)
[2018-11-03] MEDS: DEXTROSE 5%-0.9% NACL 1,000 ML IV ×4 (04:10→17:30)
[2018-11-03] MEDS: morphine SULFATE/PF (2 MG/2 ML) SYG IV ×6 (04:17→22:56)
[2018-11-03] MEDS: PANTOPRAZOLE 40 MG INJ IV ×2 (05:51→18:33)
[2018-11-03] MEDS: KETOROLAC 30 MG INJ IV ×3 (05:52→18:46)
[2018-11-03] MEDS: PIPER-TAZO 3.375 GM IV (PMX) 100 ML IVPB ×3 (05:53→18:25)
[2018-11-03 06:06] LABS: ADD MAN DIFF? NO
[2018-11-03 06:10] LABS: WHITE BLOOD COUNT 6.1 10^3/ul (4.8-10.8)
[2018-11-03 06:10] LABS: BASOPHILS % 0.2 % (0.0-2.0); EOSINOPHILS # 0.3 10^3/ul (0.0-0.5); EOSINOPHILS % 4.1 % (0.0-7.0); HEMOGLOBIN 10.5 g/dl (14.0-18.0); LYMPHOCYTES # 0.7 10^3/ul (0.8-2.9); LYMPHOCYTES % 11.1 % (15.0-51.0); MEAN CORPUSCULAR HEMOGLOBIN 32.9 pg (29.0-33.0); MEAN CORPUSCULAR HGB CONC 33.9 g/dl (32.0-37.0); MEAN CORPUSCULAR VOLUME 97.2 fl (82.0-101.0); MEAN PLATELET VOLUME 9.1 fl (7.4-10.4); MONOCYTE # 0.3 10^3/ul (0.3-0.9); MONOCYTES % 5.4 % (0.0-11.0); NEUTROPHIL # 4.8 10^3/ul (1.6-7.5); PLATELET COUNT 137 10^3/UL (140-415); RED BLOOD COUNT 3.19 10^6/ul (4.70-6.10); RED CELL DISTRIBUTION WIDTH 12.6 % (11.5-14.5)
[2018-11-03 06:25] LABS: ALANINE AMINOTRANSFERASE 158 IU/L (13-69); ALBUMIN 3.5 g/dl (3.3-4.9); ALBUMIN/GLOBULIN RATIO 1.16; ALKALINE PHOSPHATASE 87 IU/L (42-121); ANION GAP 11 (5-13); ASPARTATE AMINO TRANSFERASE 306 IU/L (15-46); BILIRUBIN,INDIRECT 0.9 mg/dl (0-1.1); BILIRUBIN,TOTAL 0.9 mg/dl (0.2-1.3); BLOOD UREA NITROGEN 3 mg/dl (7-20); CARBON DIOXIDE 25 mmol/L (21-31); CHLORIDE 102 mmol/L (97-110); CREATININE 0.52 mg/dl (0.61-1.24); Estimated GFR > 60 mL/min (>60); GLUCOSE 100 mg/dl (70-220); POTASSIUM 3.3 mmol/L (3.5-5.1); SODIUM 138 mmol/L (135-144); TOTAL PROTEIN 6.5 g/dl (6.1-8.1)
[2018-11-03 12:59] LABS: LIPASE 796 U/L (23-300)
[2018-11-03] MEDS: POTASSIUM CHLORIDE 100 ML IVPB ×2 (13:47→16:19)
[2018-11-03] MEDS: MULTIVITAMINS 10 ML, FOLIC ACID 1 MG in SOD CHLORIDE 0.9% 1,000 ML IVPB (18:25)
[2018-11-03] MEDS: THIAMINE IV FOR USE IN BANANA BAG IS CURRENTLY NOT AVAILABLE FROM MANUFACTURER. XX (19:34)
[2018-11-04] MEDS: DEXTROSE 5%-0.9% NACL 1,000 ML IV ×4 (00:10→22:26)
[2018-11-04] MEDS: PIPER-TAZO 3.375 GM IV (PMX) 100 ML IVPB ×4 (00:55→18:06)
[2018-11-04] MEDS: LORAZEPAM 2 MG INJ IV ×6 (00:56→20:28)
[2018-11-04] MEDS: morphine SULFATE/PF (2 MG/2 ML) SYG IV ×3 (03:11→08:56)
[2018-11-04] MEDS: PANTOPRAZOLE 40 MG INJ IV ×2 (05:52→18:06)
[2018-11-04 06:50] LABS: ADD MAN DIFF? NO
[2018-11-04 06:57] LABS: WHITE BLOOD COUNT 4.4 10^3/ul (4.8-10.8)
[2018-11-04 06:57] LABS: BASOPHILS % 0.2 % (0.0-2.0); EOSINOPHILS # 0.2 10^3/ul (0.0-0.5); EOSINOPHILS % 4.1 % (0.0-7.0); HEMATOCRIT 33.2 % (42.0-52.0); LYMPHOCYTES # 0.9 10^3/ul (0.8-2.9); LYMPHOCYTES % 19.9 % (15.0-51.0); MEAN CORPUSCULAR HEMOGLOBIN 32.4 pg (29.0-33.0); MEAN CORPUSCULAR HGB CONC 33.1 g/dl (32.0-37.0); MEAN CORPUSCULAR VOLUME 97.6 fl (82.0-101.0); MEAN PLATELET VOLUME 9.1 fl (7.4-10.4); MONOCYTE # 0.3 10^3/ul (0.3-0.9); MONOCYTES % 7.6 % (0.0-11.0); NEUTROPHILS % 67.7 % (39.0-77.0); PLATELET COUNT 148 10^3/UL (140-415); RED CELL DISTRIBUTION WIDTH 12.7 % (11.5-14.5)
[2018-11-04 07:14] LABS: INR 0.96; PROTIME 12.9 Sec (11.9-14.9)
[2018-11-04 07:18] LABS: ALANINE AMINOTRANSFERASE 214 IU/L (13-69); ALBUMIN 3.9 g/dl (3.3-4.9); ALBUMIN/GLOBULIN RATIO 1.21; ALKALINE PHOSPHATASE 138 IU/L (42-121); ANION GAP 12 (5-13); ASPARTATE AMINO TRANSFERASE 351 IU/L (15-46); BILIRUBIN,INDIRECT 0.5 mg/dl (0-1.1); BILIRUBIN,TOTAL 0.5 mg/dl (0.2-1.3); BLOOD UREA NITROGEN 3 mg/dl (7-20); CALCIUM 8.8 mg/dl (8.4-10.2); CARBON DIOXIDE 24 mmol/L (21-31); CHLORIDE 101 mmol/L (97-110); CREATININE 0.54 mg/dl (0.61-1.24); Estimated GFR > 60 mL/min (>60); GLUCOSE 87 mg/dl (70-220); POTASSIUM 3.4 mmol/L (3.5-5.1); SODIUM 137 mmol/L (135-144); TOTAL PROTEIN 7.1 g/dl (6.1-8.1)
[2018-11-04 07:43] LABS: HEPATITIS B SURFACE ANTIGEN NEGATIVE (NEGATIVE)
[2018-11-04 07:59] LABS: HEPATITIS B SURFACE ANTIBODY NEGATIVE (NEGATIVE)
[2018-11-04 08:00] LABS: HEPATITIS B CORE ANTIBODY NEGATIVE (NEGATIVE); HEPATITIS C VIRAL ANTIBODY NEGATIVE (NEGATIVE)
[2018-11-04] MEDS: THIAMINE IV FOR USE IN BANANA BAG IS CURRENTLY NOT AVAILABLE FROM MANUFACTURER. XX (08:36)
[2018-11-04] MEDS: MULTIVITAMINS 10 ML, FOLIC ACID 1 MG in SOD CHLORIDE 0.9% 1,000 ML IVPB (08:56)
[2018-11-04] MEDS: KETOROLAC 30 MG INJ IV ×2 (08:57→16:23)
[2018-11-04] MEDS: ONDANSETRON 4 MG INJ IV (08:57)
[2018-11-04] MEDS: POTASSIUM CHLORIDE 100 ML IVPB ×3 (12:33→15:16)
[2018-11-04] MEDS: HYDROmorphONE 1 MG/ML SYG IV ×3 (12:34→20:27)
[2018-11-05] MEDS: PIPER-TAZO 3.375 GM IV (PMX) 100 ML IVPB ×4 (00:13→17:40)
[2018-11-05] MEDS: HYDROmorphONE 1 MG/ML SYG IV ×4 (00:15→12:04)
[2018-11-05] MEDS: LORAZEPAM 2 MG INJ IV ×4 (00:15→19:26)
[2018-11-05] MEDS: DEXTROSE 5%-0.9% NACL 1,000 ML IV ×3 (02:50→17:40)
[2018-11-05 06:02] LABS: ADD MAN DIFF? NO
[2018-11-05 06:09] LABS: WHITE BLOOD COUNT 3.2 10^3/ul (4.8-10.8)
[2018-11-05 06:09] LABS: BASOPHILS % 0.6 % (0.0-2.0); EOSINOPHILS # 0.2 10^3/ul (0.0-0.5); EOSINOPHILS % 6.2 % (0.0-7.0); HEMATOCRIT 31.3 % (42.0-52.0); HEMOGLOBIN 10.4 g/dl (14.0-18.0); LYMPHOCYTES # 0.9 10^3/ul (0.8-2.9); LYMPHOCYTES % 28.9 % (15.0-51.0); MEAN CORPUSCULAR HEMOGLOBIN 32.3 pg (29.0-33.0); MEAN CORPUSCULAR HGB CONC 33.2 g/dl (32.0-37.0); MEAN CORPUSCULAR VOLUME 97.2 fl (82.0-101.0); MEAN PLATELET VOLUME 9.1 fl (7.4-10.4); MONOCYTE # 0.4 10^3/ul (0.3-0.9); MONOCYTES % 12.1 % (0.0-11.0); NEUTROPHIL # 1.7 10^3/ul (1.6-7.5); NEUTROPHILS % 51.3 % (39.0-77.0); PLATELET COUNT 166 10^3/UL (140-415); RED BLOOD COUNT 3.22 10^6/ul (4.70-6.10); RED CELL DISTRIBUTION WIDTH 12.6 % (11.5-14.5)
[2018-11-05] MEDS: PANTOPRAZOLE 40 MG INJ IV ×2 (06:23→17:40)
[2018-11-05 06:35] LABS: ALANINE AMINOTRANSFERASE 208 IU/L (13-69); ALBUMIN 3.6 g/dl (3.3-4.9); ALBUMIN/GLOBULIN RATIO 1.16; ALKALINE PHOSPHATASE 117 IU/L (42-121); ANION GAP 8 (5-13); ASPARTATE AMINO TRANSFERASE 264 IU/L (15-46); BILIRUBIN,INDIRECT 0.4 mg/dl (0-1.1); BILIRUBIN,TOTAL 0.4 mg/dl (0.2-1.3); BLOOD UREA NITROGEN 4 mg/dl (7-20); CALCIUM 8.6 mg/dl (8.4-10.2); CARBON DIOXIDE 28 mmol/L (21-31); CHLORIDE 101 mmol/L (97-110); CREATININE 0.55 mg/dl (0.61-1.24); Estimated GFR > 60 mL/min (>60); GLUCOSE 113 mg/dl (70-220); POTASSIUM 3.5 mmol/L (3.5-5.1); SODIUM 137 mmol/L (135-144); TOTAL PROTEIN 6.7 g/dl (6.1-8.1)
[2018-11-05 06:36] LABS: MAGNESIUM 1.9 mg/dl (1.7-2.5)
[2018-11-05] MEDS: THIAMINE IV FOR USE IN BANANA BAG IS CURRENTLY NOT AVAILABLE FROM MANUFACTURER. XX (07:56)
[2018-11-05] MEDS: MULTIVITAMINS 10 ML, FOLIC ACID 1 MG in SOD CHLORIDE 0.9% 1,000 ML IVPB (07:56)
[2018-11-05] MEDS: ONDANSETRON 4 MG INJ IV (07:57)
[2018-11-05] MEDS ORDERED: LORAZEPAM 2 MG INJ IV (12:00)
[2018-11-05] MEDS: HALOPERIDOL 5 MG INJ IM (12:51)
[2018-11-05] MEDS: HYDROmorphONE 2 MG/ML SYG IV ×3 (13:49→21:55)
[2018-11-05] MEDS: IOHEXOL 300MG/ML 150 ML BTL (16:46)
[2018-11-05] MEDS: SOD CHLORIDE 0.9% 100 ML (16:46)
[2018-11-06] MEDS: DEXTROSE 5%-0.9% NACL 1,000 ML IV ×4 (00:09→18:12)
[2018-11-06] MEDS: PIPER-TAZO 3.375 GM IV (PMX) 100 ML IVPB ×2 (00:18→05:54)
[2018-11-06] MEDS: HYDROmorphONE 2 MG/ML SYG IV ×5 (02:18→23:25)
[2018-11-06] MEDS: LORAZEPAM 2 MG INJ IV ×3 (02:23→22:12)
[2018-11-06] MEDS: PANTOPRAZOLE 40 MG INJ IV ×2 (05:54→17:49)
[2018-11-06 07:01] LABS: ADD MAN DIFF? NO
[2018-11-06 07:09] LABS: WHITE BLOOD COUNT 3.9 10^3/ul (4.8-10.8)
[2018-11-06 07:09] LABS: BASOPHILS % 0.3 % (0.0-2.0); EOSINOPHILS # 0.2 10^3/ul (0.0-0.5); EOSINOPHILS % 4.3 % (0.0-7.0); HEMATOCRIT 31.6 % (42.0-52.0); HEMOGLOBIN 10.6 g/dl (14.0-18.0); LYMPHOCYTES # 1.2 10^3/ul (0.8-2.9); LYMPHOCYTES % 31.4 % (15.0-51.0); MEAN CORPUSCULAR HEMOGLOBIN 32.6 pg (29.0-33.0); MEAN CORPUSCULAR HGB CONC 33.5 g/dl (32.0-37.0); MEAN CORPUSCULAR VOLUME 97.2 fl (82.0-101.0); MEAN PLATELET VOLUME 8.9 fl (7.4-10.4); MONOCYTE # 0.5 10^3/ul (0.3-0.9); MONOCYTES % 12.8 % (0.0-11.0); NEUTROPHILS % 50.4 % (39.0-77.0); PLATELET COUNT 190 10^3/UL (140-415); RED BLOOD COUNT 3.25 10^6/ul (4.70-6.10)
[2018-11-06 07:32] LABS: ALANINE AMINOTRANSFERASE 190 IU/L (13-69); ALBUMIN 3.8 g/dl (3.3-4.9); ALBUMIN/GLOBULIN RATIO 1.18; ALKALINE PHOSPHATASE 93 IU/L (42-121); ANION GAP 8 (5-13); ASPARTATE AMINO TRANSFERASE 171 IU/L (15-46); BILIRUBIN,INDIRECT 0.2 mg/dl (0-1.1); BILIRUBIN,TOTAL 0.2 mg/dl (0.2-1.3); BLOOD UREA NITROGEN 3 mg/dl (7-20); CALCIUM 8.7 mg/dl (8.4-10.2); CARBON DIOXIDE 32 mmol/L (21-31); CHLORIDE 98 mmol/L (97-110); CREATININE 0.57 mg/dl (0.61-1.24); Estimated GFR > 60 mL/min (>60); GLUCOSE 99 mg/dl (70-220); POTASSIUM 3.2 mmol/L (3.5-5.1); SODIUM 138 mmol/L (135-144)
[2018-11-06 07:35] LABS: LIPASE 409 U/L (23-300)
[2018-11-06 07:35] LABS: AMYLASE 34 U/L (11-123)
[2018-11-06] MEDS: THIAMINE IV FOR USE IN BANANA BAG IS CURRENTLY NOT AVAILABLE FROM MANUFACTURER. XX (08:11)
[2018-11-06 08:15] LABS: MAGNESIUM 1.8 mg/dl (1.7-2.5)
[2018-11-06] MEDS: MULTIVITAMINS 10 ML, FOLIC ACID 1 MG in SOD CHLORIDE 0.9% 1,000 ML IVPB (08:17)
[2018-11-06] MEDS: HYDROmorphONE 1 MG/ML SYG IV (10:15)
[2018-11-06] MEDS: POTASSIUM CHLORIDE 100 ML IVPB ×3 (10:29→15:51)
[2018-11-06] MEDS: NA PHOSPHATE/BIPHOS 133 ML ENEMA PR (10:51)
[2018-11-06 10:56] LABS: MITOCHONDRIAL TB NEGATIVE (NEGATIVE); SMOOTH MUSCLE AB SCREEN NEGATIVE (NEGATIVE)
[2018-11-06 13:15] LABS: ANA SCREEN NEGATIVE (NEGATIVE)
[2018-11-07] MEDS: DEXTROSE 5%-0.9% NACL 1,000 ML IV ×3 (01:02→14:50)
[2018-11-07] MEDS: HYDROmorphONE 2 MG/ML SYG IV ×3 (03:20→11:32)
[2018-11-07] MEDS: PANTOPRAZOLE 40 MG INJ IV ×2 (05:51→17:48)
[2018-11-07 06:00] LABS: ADD MAN DIFF? NO
[2018-11-07 06:15] LABS: WHITE BLOOD COUNT 4.7 10^3/ul (4.8-10.8)
[2018-11-07 06:15] LABS: BASOPHILS % 0.2 % (0.0-2.0); EOSINOPHILS # 0.2 10^3/ul (0.0-0.5); EOSINOPHILS % 3.6 % (0.0-7.0); HEMATOCRIT 32.7 % (42.0-52.0); HEMOGLOBIN 10.9 g/dl (14.0-18.0); LYMPHOCYTES # 1.3 10^3/ul (0.8-2.9); LYMPHOCYTES % 28.1 % (15.0-51.0); MEAN CORPUSCULAR HEMOGLOBIN 32.6 pg (29.0-33.0); MEAN CORPUSCULAR HGB CONC 33.3 g/dl (32.0-37.0); MEAN CORPUSCULAR VOLUME 97.9 fl (82.0-101.0); MEAN PLATELET VOLUME 8.7 fl (7.4-10.4); MONOCYTE # 0.6 10^3/ul (0.3-0.9); MONOCYTES % 12.4 % (0.0-11.0); NEUTROPHIL # 2.6 10^3/ul (1.6-7.5); NEUTROPHILS % 55.1 % (39.0-77.0); PLATELET COUNT 230 10^3/UL (140-415); RED BLOOD COUNT 3.34 10^6/ul (4.70-6.10); RED CELL DISTRIBUTION WIDTH 12.9 % (11.5-14.5)
[2018-11-07 06:25] LABS: ANION GAP 9 (5-13); BLOOD UREA NITROGEN 3 mg/dl (7-20); CALCIUM 8.8 mg/dl (8.4-10.2); CARBON DIOXIDE 31 mmol/L (21-31); CHLORIDE 99 mmol/L (97-110); CREATININE 0.55 mg/dl (0.61-1.24); Estimated GFR > 60 mL/min (>60); GLUCOSE 127 mg/dl (70-220); MAGNESIUM 1.9 mg/dl (1.7-2.5); PHOSPHORUS 3.8 mg/dl (2.5-4.9); POTASSIUM 3.3 mmol/L (3.5-5.1); SODIUM 139 mmol/L (135-144)
[2018-11-07] MEDS: THIAMINE IV FOR USE IN BANANA BAG IS CURRENTLY NOT AVAILABLE FROM MANUFACTURER. XX (08:11)
[2018-11-07] MEDS: MULTIVITAMINS 10 ML, FOLIC ACID 1 MG in SOD CHLORIDE 0.9% 1,000 ML IVPB (08:12)
[2018-11-07] MEDS: LORAZEPAM 2 MG INJ IV (12:47)
[2018-11-07] MEDS: POTASSIUM CHLORIDE (SR) 20 MEQ TAB PO (14:52)
[2018-11-07] MEDS: OXYCODONE/ACETAMINOPHEN (5/325) TAB PO ×2 (16:11→21:05)
[2018-11-07] MEDS: ONDANSETRON 4 MG INJ IV (19:36)
[2018-11-07] MEDS: traZODone 100 MG TAB PO (21:05)
[2018-11-07] MEDS: QUETIAPINE 100 MG TAB PO (21:05)
[2018-11-08] MEDS ORDERED: SOD CHLORIDE 0.9% 500 ML IV (02:30)
[2018-11-08] MEDS: SOD CHLORIDE 0.9% 500 ML IV (02:30)
[2018-11-08] MEDS: PANTOPRAZOLE 40 MG INJ IV ×2 (05:45→18:38)
[2018-11-08 06:53] LABS: AMYLASE 50 U/L (11-123)
[2018-11-08 06:53] LABS: LIPASE 152 U/L (23-300)
[2018-11-08 07:02] LABS: ANION GAP 8 (5-13); BLOOD UREA NITROGEN 6 mg/dl (7-20); CARBON DIOXIDE 29 mmol/L (21-31); CHLORIDE 102 mmol/L (97-110); Estimated GFR > 60 mL/min (>60); GLUCOSE 85 mg/dl (70-220); POTASSIUM 3.5 mmol/L (3.5-5.1); SODIUM 139 mmol/L (135-144)
[2018-11-08] MEDS: THIAMINE IV FOR USE IN BANANA BAG IS CURRENTLY NOT AVAILABLE FROM MANUFACTURER. XX (09:00)
[2018-11-08] MEDS: MULTIVITAMINS 10 ML, FOLIC ACID 1 MG in SOD CHLORIDE 0.9% 1,000 ML IVPB (09:32)
[2018-11-08] MEDS: FLUOXETINE 20 MG CAP PO (09:32)
[2018-11-08] MEDS: OXYCODONE/ACETAMINOPHEN (5/325) TAB PO ×3 (09:40→21:07)
[2018-11-08] MEDS: traZODone 100 MG TAB PO (21:03)
[2018-11-08] MEDS: QUETIAPINE 100 MG TAB PO (21:03)
[2018-11-09] MEDS: PANTOPRAZOLE 40 MG INJ IV ×2 (05:38→17:37)
[2018-11-09] MEDS: FLUOXETINE 20 MG CAP PO (08:55)
[2018-11-09] MEDS: MULTIVITAMINS 10 ML, FOLIC ACID 1 MG in SOD CHLORIDE 0.9% 1,000 ML IVPB (12:40)
[2018-11-09] MEDS ORDERED: IBUPROFEN 400 MG TAB PO (18:00)
[2018-11-09] MEDS: QUETIAPINE 100 MG TAB PO (20:36)
[2018-11-09] MEDS: traZODone 100 MG TAB PO (20:36)
[2018-11-10] MEDS: PANTOPRAZOLE 40 MG INJ IV (06:13)
[2018-11-10] MEDS: FLUOXETINE 20 MG CAP PO (08:21)
[2018-11-10] MEDS: MULTIVITAMINS 10 ML, FOLIC ACID 1 MG in SOD CHLORIDE 0.9% 1,000 ML IVPB (09:00)
== END 2018-11-10 12:13 | disposition home or self-care (01) | DRG 440 ==
LOC: TEL 17:31
DX: K85.20 Alcohol induced acute pancreatitis without necrosis or infection (principal); N40.1 Benign prostatic hyperplasia with lower urinary tract symptoms; R33.8 Other retention of urine; F10.229 Alcohol dependence with intoxication, unspecified; K70.0 Alcoholic fatty liver; F41.9 Anxiety disorder, unspecified; F32.9 Major depressive disorder, single episode, unspecified; F17.200 Nicotine dependence, unspecified, uncomplicated; D64.9 Anemia, unspecified
CPT/HCPCS: 74176; 74177; 74181; 80048; 80053; 80061; 82150; 82787; 82962; 83690; 83735; 84100; 84443; 84484; 85025; 85610; 86038; 86255; 86704; 86706; 86708; 86803; 87340; 93306